=== PATIENT | female | born 2005 | race Caucasian/White ===

== ENCOUNTER 2024-10-03 00:07 | Emergency (ER) | payer OTHER ==
[~2024-10-03] VITALS: Ht 167.6 cm; Wt 59.2 kg
[2024-10-03 00:10] VITALS: TEMP 97.7
[2024-10-03] MEDS ORDERED: TRAZ-189 PO (00:21)
[2024-10-03 04:34] VITALS: BP 123/57; O2SAT 100
== END 2024-10-03 05:56 | disposition home or self-care (01) ==
LOC: M ED 00:07
DX: T33.832A Superficial frostbite of left toe(s), initial encounter (principal); G43.909 Migraine, unspecified, not intractable, without status migrainosus; F17.290 Nicotine dependence, other tobacco product, uncomplicated

== ENCOUNTER 2024-11-02 18:58 | Emergency (ER) | payer OTHER ==
[~2024-11-02] VITALS: Ht 167.6 cm; Wt 61.0 kg
[~2024-11-02 18:58] MED LIST: TRAZ-189 PO
[2024-11-02 19:02] VITALS: BP 133/76; TEMP 98; O2SAT 98
[2024-11-02] MEDS ORDERED: PRIS1TAB PO (19:22)
[2024-11-02] MEDS ORDERED: FAMO40TA3 PO (19:22)
[2024-11-02] MEDS ORDERED: LAMO100T80 PO (19:22)
[2024-11-02] MEDS ORDERED: LIDO4CRE12 TOP (20:22)
[2024-11-02] MEDS ORDERED: IBUP-1022 PO (20:22)
[2024-11-02] MEDS: LIDOCAINE 4% CREAM 5GM (LMX4) TOP ONE (20:32)
[2024-11-02] MEDS: IBUPROFEN 600MG TAB PO ONE (20:32)
== END 2024-11-02 20:34 | disposition home or self-care (01) ==
LOC: M ED 18:58
DX: T23.101A Burn of first degree of right hand, unspecified site, initial encounter (principal); X10.2XXA Contact with fats and cooking oils, initial encounter; Y92.009 Unspecified place in unspecified non-institutional (private) residence as the place of occurrence of the external cause; Y93.9 Activity, unspecified; Y99.9 Unspecified external cause status

== ENCOUNTER 2024-12-15 16:16 | Emergency (ER) | payer OTHER ==
[~2024-12-15] VITALS: Ht 167.6 cm; Wt 59.0 kg
[~2024-12-15 16:16] MED LIST changes: +FAMO40TA3 PO; +IBUP-1022 PO; +LAMO100T80 PO; +LIDO4CRE12 TOP; +PRIS1TAB PO
[2024-12-15] MEDS ORDERED: GABA-1172 (16:48)
[2024-12-15] MEDS ORDERED: DULO1CAP4 (16:48)
[2024-12-15] MEDS ORDERED: METH-1164 (16:48)
[2024-12-15] MEDS: ACETAMINOPHEN 325 MG TAB PO ONE (19:30)
[2024-12-15] MEDS: ONDANSETRON 4MG ORAL DISINTEGRATING TAB PO ONE (19:40)
[2024-12-15 20:02] VITALS: BP 151/91; TEMP 97.8; O2SAT 100
== END 2024-12-15 21:19 | disposition left against medical advice (07) ==
LOC: M ED 16:16
DX: Z53.21 Procedure and treatment not carried out due to patient leaving prior to being seen by health care provider (principal)